=== PATIENT | male | born 1955 | race Caucasian/White ===

== ENCOUNTER 2016-12-27 18:29 | Emergency (ER) | payer OTHER ==
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
[2016-12-27 18:42] VITALS: TEMP 98.4
[2016-12-27 20:12] VITALS: BP 146/104; PULSE 64; RESP 18; O2SAT 95
== END 2016-12-27 20:11 | disposition home or self-care (01) ==
DX: S29.9XXA Unspecified injury of thorax, initial encounter (principal); V49.49XA Driver injured in collision with other motor vehicles in traffic accident, initial encounter; Y92.410 Unspecified street and highway as the place of occurrence of the external cause